=== PATIENT | male | born 1975 | race Caucasian/White ===

== ENCOUNTER 2024-10-23 18:02 | Emergency (ER) | payer BC, SELFPAY ==
[2024-10-23 18:04] VITALS: BP 154/122; PULSE 88; RESP 18; TEMP 37.1; O2SAT 100; BMI 25.0
[2024-10-23 18:08] VITALS: BMI 26.7
--- NOTE | 2024-10-23 18:10 | EKG12_ITS ---
Test Reason : O Blood Pressure : */* mmHG Vent. Rate : 86 BPM Atrial Rate : 86 BPM P-R Int : 168 ms QRS Dur : 98 ms QT Int : 404 ms P-R-T Axes : 53 44 61 degrees QTcB Int : 483 ms Normal sinus rhythm Otherwise normal ECG Confirmed by TEODORA DINH, AKI ([id number]), assistant production editor ANA REN ([id number]) on 10/25/2024 8:47:33 AM Referred By: Confirmed By: AKI ARAIZA MD
[2024-10-23] MEDS: Ketorolac 15 MG/ML Vial IV (18:13)
[2024-10-23] MEDS: Morphine 4 MG/ML Syringe IV ×2 (18:13→20:40)
[2024-10-23] MEDS: Ondansetron 4 MG/2 ML Vial IV (18:13)
[2024-10-23 18:14] VITALS: BP 129/94; PULSE 88; RESP 30; O2SAT 100
--- NOTE | 2024-10-23 18:20 | CT_ITS ---
INDICATION: L flank pain EXAMINATION: CT Abdomen And Pelvis W/O Contrast Injection TECHNIQUE: Helically acquired images were obtained of the abdomen and pelvis without the use of IV contrast. A radiation dose optimization technique was used for this scan. Oral contrast: None. COMPARISON: None FINDINGS: Evaluation of the solid organs and vascular structures is limited without intravenous contrast. Visualized lung bases: Unremarkable Liver: Unremarkable Gallbladder: Unremarkable Spleen: Unremarkable Pancreas: Unremarkable Adrenal Glands: Unremarkable Kidneys: Mild left hydroureteronephrosis with no obstructing stone visualized. Vasculature: Mild scattered aortoiliac atherosclerotic calcifications. GI Tract: Unremarkable Lymphadenopathy: None Peritoneum: No ascites. Bladder: Unremarkable Reproductive organs: Unremarkable Bones/Soft tissues: No suspicious osseous or soft tissue lesions CT/Abdomen/Pelvis without Cont IMPRESSION: Mild left hydroureteronephrosis with no obstructing stone visualized. This is most likely secondary to a recently passed stone. Electronically Signed: Ke Calhoun MD at 21:24 EST ,
--- NOTE | 2024-10-23 18:24 | EX.ED.DYSGE1 ---
HPI <JOCELIN Smith - Last Filed: 10/23/24 21:54> History of Present Illness Chief Complaint: Flank Pain Narrative Narrative: Patient presenting today with left-sided flank pain that started about 30 minutes prior to arrival. He denies any history of kidney stones or fevers, chills, abdominal pain, nausea, vomiting, hematuria, and previous abdominal surgery. He denies any chronic medical conditions. On the way here he reports he developed pain below his left breast/left upper quadrant of his abdomen. He denies any injury. No cardiac history or history of blood clots/recent surgery/travel/immobilization. PFSH <JOCELIN Smith - Last Filed: 10/23/24 21:54> PFSH Medical History Epilepsy Home Medications ?Medication ?Instructions ?Recorded ?Last Taken ?Type hydrocodone-acetaminophen 5-325mg 1 tab PO Q4H PRN PRN Pain 2 days 10/23/24 Unknown Rx 5mg-325mg #7 TABLETS Allergy/AdvReac Type Severity Reaction Status Date / Time sulfamethoxazole (From Allergy PT UNSURE Verified 10/23/24 18:04 Bactrim) OF REACTION trimethoprim (From Bactrim) Allergy PT UNSURE Verified 10/23/24 18:04 OF REACTION Social History Smoking Status: Former smoker ROS <JOCELIN Smith - Last Filed: 10/23/24 21:54> ROS ED Constitutional Constitutional ED: Denies chills or fever(s) Cardiovascular Cardiovascular: Denies chest pain Respiratory/Chest Respiratory/Chest: Denies cough or dyspnea Gastrointestinal Gastrointestinal: Denies abdominal pain, nausea or vomiting Genitourinary Genitourinary ED: Denies dysuria, hematuria or urinary urgency Musculoskeletal Musculoskeletal: Reports other Details: Left flank pain Integumentary Denies rash Neurologic Neurologic: Denies weakness EXAM <JOCELIN Smith - Last Filed: 10/23/24 21:54> Physical Exam Const Vital Signs: 10/23/24 18:04 10/23/24 18:14 10/23/24 19:00 Temperature 98.7 F Temperature Source Oral Pulse Rate 88 88 64 Respiratory Rate 18 30 H 18 Blood Pressure 154/122 H 129/94 H 138/71 H Blood Pressure Mean 132 105 92 Pulse Ox 100 100 99 Oxygen Delivery Method Room Air Room Air 10/23/24 20:00 10/23/24 20:49 10/23/24 21:55 Temperature 98.7 F 98.7 F 98.5 F Temperature Source Oral Oral Pulse Rate 88 85 81 Respiratory Rate 16 16 16 Blood Pressure 126/75 H 140/84 H 137/84 H Blood Pressure Mean 92 102 101 Pulse Ox 100 100 97 Oxygen Delivery Method Room Air Room Air Positive well nourished, well developed and no apparent distress General Appearance ED: well developed HEENT Reports normocephalic and head/scalp atraumatic Mouth ED: Yes moist mucous membranes normal Eyes PERRL and EOMs intact bilaterally Neck full ROM and supple Chest Wall inspection of chest normal Resp normal respiratory effort and clear to auscultation bilaterally Cardio regular rate and regular rhythm GI soft to palpation, non-tender, non-distended and no masses Back/Spine normal ROM and normal to inspection General Back: Negative for CVA tenderness Extremity normal to inspection and full ROM Neuro oriented x3, CN's II-XII intact bilaterally, moves all extremities, no focal motor deficits and no sensory deficits noted Sensorium / Orientation: awake and alert Psych mental status grossly normal and thought process normal Skin no rashes or lesions noted and no wounds <Dr. Jatin Jc DO - Last Filed: 10/24/24 02:23> Physical Exam Const Vital Signs: 10/23/24 18:04 10/23/24 18:14 10/23/24 19:00 Temperature 98.7 F Temperature Source Oral Pulse Rate 88 88 64 Respiratory Rate 18 30 H 18 Blood Pressure 154/122 H 129/94 H 138/71 H Blood Pressure Mean 132 105 92 Pulse Ox 100 100 99 Oxygen Delivery Method Room Air Room Air 10/23/24 20:00 10/23/24 20:49 10/23/24 21:55 Temperature 98.7 F 98.7 F 98.5 F Temperature Source Oral Oral Pulse Rate 88 85 81 Respiratory Rate 16 16 16 Blood Pressure 126/75 H 140/84 H 137/84 H Blood Pressure Mean 92 102 101 Pulse Ox 100 100 97 Oxygen Delivery Method Room Air Room Air MDM <JOCELIN Smith - Last Filed: 10/23/24 21:54> MDM MDM Narrative Medical decision making narrative: Patient presenting today with left-sided flank pain that started about 30 minutes prior to arrival. He is nontoxic-appearing. He does appear uncomfortable. Labs obtained, he has a WBC of 13.6, potassium of 2.8, creatinine 1.52. Platelet count of 479. CT scan of the abdomen pelvis obtained to assess for kidney stones, diverticulitis, bowel obstruction, appendicitis, mass, and other etiology. Patient given IV fluids, Zofran, morphine, and Toradol. He initially reported left upper quadrant/pain below the left breast that started on his way here and EKG was obtained via protocol orders, this is normal sinus rhythm. He did have reproducible tenderness to his left upper quadrant/left lower chest, low suspicion that his pain is cardiac in nature. He is not complaining of any chest pain currently and reports that that pain did resolve. CT scan of the abdomen pelvis shows mild left hydroureteronephrosis, no obstructing stone visualized, he most likely had a recently passed stone. UA is negative for UTI. He does have significant improvement of his symptoms on reexamination. Will give him a short course of [place] for home for pain. Recommended he follow-up with his PCP and he will be discharged home in stable condition. Lab Data Attestation: I reviewed the patient's lab results. Labs: Laboratory Results - last 24 hr 10/23/24 10/23/24 18:09 20:47 WBC 13.6 H RBC 4.98 Hgb 15.4 Hct 43.3 MCV 86.9 MCH 30.9 MCHC 35.6 RDW Std Deviation 39.2 RDW Coeff of Kate 12.4 Plt Count 479 H MPV 9.6 Immature Gran % (Auto) 0.500 Neut % (Auto) 57.1 Lymph % (Auto) 31.6 [place] % (Auto) 7.9 Eos % (Auto) 2.1 Baso % (Auto) 0.8 Absolute Neuts (auto) 7.8 H Absolute Lymphs (auto) 4.30 Nucleated RBC % 0 Sodium 139 Potassium 2.8 L Chloride 106 Carbon Dioxide 21.0 Anion Gap 12 BUN 14 Creatinine 1.52 H Estim Creat Clear Calc 63.30 Est GFR (MDRD) Af Amer 63 Est GFR (MDRD) Non-Af 52 L BUN/Creatinine Ratio 9.2 L Glucose 174 H Calcium 9.1 Urine Color Yellow Urine Clarity Sl. Cloudy Urine pH 7.0 Ur Specific [place] 1.015 Urine Protein 15 H Urine Glucose (UA) Normal Urine Ketones Negative Urine Occult Blood Negative Urine Nitrite Negative Urine Bilirubin Negative Urine Urobilinogen Normal Ur Leukocyte Esterase Negative Urine RBC 0-5 SEEN Urine WBC 5-10 SEEN Ur Squamous Epith Cells 0 SEEN Urine Bacteria RARE Urine Mucus 1+ Radiography Diagnostic Testing: Clinical Impression(s) from Imaging Studies Abdomen/Pelvis CT 10/23/24 18:20 IMPRESSION: Mild left hydroureteronephrosis with no obstructing stone visualized. This is most likely secondary to a recently passed stone. Electronically Signed: Ke Calhoun MD at 21:24 EST , EKG Initial EKG: Comments: 86 bpm, normal sinus rhythm, no ST elevation, interpreted by attending ED physician <Dr. Jatin Jc, DO - Last Filed: 10/24/24 02:23> [facility] Lab Data Labs: Laboratory Results - last 24 hr 10/23/24 10/23/24 18:09 20:47 WBC 13.6 H RBC 4.98 Hgb 15.4 Hct 43.3 MCV 86.9 MCH 30.9 MCHC 35.6 RDW Std Deviation 39.2 RDW Coeff of Kate 12.4 Plt Count 479 H MPV 9.6 Immature Gran % (Auto) 0.500 Neut % (Auto) 57.1 Lymph % (Auto) 31.6 [place] % (Auto) 7.9 Eos % (Auto) 2.1 Baso % (Auto) 0.8 Absolute Neuts (auto) 7.8 H Absolute Lymphs (auto) 4.30 Nucleated RBC % 0 Sodium 139 Potassium 2.8 L Chloride 106 Carbon Dioxide 21.0 Anion Gap 12 BUN 14 Creatinine 1.52 H Estim Creat Clear Calc 63.30 Est GFR (MDRD) Af Amer 63 Est GFR (MDRD) Non-Af 52 L BUN/Creatinine Ratio 9.2 L Glucose 174 H Calcium 9.1 Urine Color Yellow Urine Clarity Sl. Cloudy Urine pH 7.0 Ur Specific [place] 1.015 Urine Protein 15 H Urine Glucose (UA) Normal Urine Ketones Negative Urine Occult Blood Negative Urine Nitrite Negative Urine Bilirubin Negative Urine Urobilinogen Normal Ur Leukocyte Esterase Negative Urine RBC 0-5 SEEN Urine WBC 5-10 SEEN Ur Squamous Epith Cells 0 SEEN Urine Bacteria RARE Urine Mucus 1+ Radiography Diagnostic Testing: Clinical Impression(s) from Imaging Studies Abdomen/Pelvis CT 10/23/24 18:20 IMPRESSION: Mild left hydroureteronephrosis with no obstructing stone visualized. This is most likely secondary to a recently passed stone. Electronically Signed: Ke Calhoun MD at 21:24 EST , Treatment and Re-Evaluation :: I have personally performed a face to face assessment of the patient and have reviewed the PHIL Note. I performed a substantive portion of the visit including all aspects of the following. My vincent findings include: History: Patient presents with left flank pain that began today just prior to arrival. Patient states the pain is sharp and stabbing. Patient states it is over his left flank. Patient states nothing makes it worse and nothing makes it better. Patient denies any fevers but admits to subjective chills. Patient denies any nausea or vomiting. Patient denies any dysuria or hematuria. Exam: Vital signs are stable except for an elevated blood pressure 154/122. Patient is afebrile. Patient is in no acute distress. Oral mucosa is pink and moist. Neck is supple. Trachea is midline. There is no JVD. Heart was regular rate and rhythm. Lungs are clear and equal bilaterally. Abdomen is soft. Bowel sounds are normal. There is no tenderness. There is no rebound or guarding noted. There is some mild left CVA tenderness. Cranial nerves II through XII are intact. There are no focal motor or sensory deficits noted. Medical Decision Making: Differential diagnosis includes ureteral calculus, diverticulitis, bowel obstruction, perforation, urinary tract infection, pyelonephritis, and anxiety. CBC will be obtained to assess for leukocytosis and anemia. Basic metabolic profile will be obtained to assess for electrolyte abnormality and renal function. Urinalysis will be obtained to assess for urinary tract infection and hematuria. CT scan of the abdomen and pelvis will be obtained to assess for ureteral calculus, bowel obstruction, and perforation. Patient was given IV fluids, Toradol, morphine, and Zofran. CBC was reviewed. There is a mild leukocytosis of 13.6. Platelets were slightly elevated at 479. Basic metabolic profile was reviewed. Potassium is low at 2.8. Creatinine was slightly elevated at 1.52. There are no prior lab values for comparison. Urinalysis was reviewed. There is no evidence of urinary tract infection or hematuria. CT scan of the abdomen and pelvis was obtained. There is some residual left hydronephrosis. This could be from a recently passed stone. Patient was advised of his findings. Patient was given a prescription for a short course of [place]. Patient was instructed to follow-up with his primary care physician in 5 to 7 days. Patient was instructed return if worse in any way. Patient understood and was agreeable with the plan. All questions were answered. Discharge Plan Triage Chief Complaint: Flank Pain ED Midlevel Provider: Roselyn Braden ED Provider: Jatin Jc Dx/Rx/DC Orders Clinical Impression: Acute left flank pain Instructions: ED Kidney Stone, Passed Prescriptions: New hydrocodone-acetaminophen 5-325 mg tablet 1 tab PO Q4H PRN PRN (Reason: Pain) 2 Days Qty: 7 0RF Primary Care Provider: Sreekanth Sotomayor Referrals: Sreekanth Sotomayor MD [Primary Care Provider] - 5-7 Days Activity Restrictions/Additional Instructions: Follow-up with your PCP and return for any other concerns. Print Language: Swedish Disposition Disposition: Home, Self Care Discharge Date/Time: 10/23/24 21:57
[2024-10-23 18:28] LABS: Absolute Neutrophil Count 7.8 X10^3/uL (2.0-7.7); Basophil# 0.11 X10^3/uL; Basophil% 0.8 % (0-1); Eosinophil# 0.29 X10^3/uL; Eosinophils% 2.1 % (0-5); Hematocrit 43.3 % (40-54); Hemoglobin 15.4 g/dL (13.0-16.5); Lymphocyte % 31.6 % (19-41); Mean Corp Hgb Conc 35.6 g/dL (32-36); Mean Corpuscular Hgb 30.9 pg (27.0-32.0); Mean Corpuscular Volume 86.9 fL (80-94); Mean Platelet Vol. 9.6 fl (6.2-12.0); Monocyte# 1.07 X10^3/uL; Monocyte% 7.9 % (0-10); NRBC Flagged by Analyzer 0 % (0-5); Neutrophil # 7.76 X10^3/uL (2.7-7.7); Neutrophil % 57.1 % (47-70); Platelet Count 479 K/mm3 (150-450); RBC Distribution Width CV 12.4 % (11.6-14.6); RBC Distribution Width SD 39.2 fl (35.1-43.9); Red Blood Count 4.98 M/mm3 (4.6-6.2); White Blood Count 13.6 K/mm3 (4.4-11.0)
[2024-10-23] MEDS: 0.9% Normal Saline (1000mL) 1,000 ML 999 ML IV (18:28)
[2024-10-23 18:46] LABS: Anion Gap 12 (5-15); BUN 14 mg/dL (7-18); BUN/Creat Ratio 9.2 RATIO (10-20); Calcium,Total 9.1 mg/dL (8.5-10.1); Chloride 106 mmol/L (98-107); Creatinine, Serum 1.52 mg/dL (0.70-1.30); EST Glomerular Filtration Rate 52 mL/min (>60); Est Glom Filt Rate - Afr Amer 63 mL/min (>60); Glucose 174 mg/dL (74-106); Potassium 2.8 mmol/L (3.5-5.1); Sodium Level 139 mmol/L (136-145)
[2024-10-23 19:00] VITALS: BP 138/71; PULSE 64; RESP 18; O2SAT 99
[2024-10-23 20:00] VITALS: BP 126/75; PULSE 88; RESP 16; TEMP 37.1; O2SAT 100
[2024-10-23 20:49] VITALS: BP 140/84; PULSE 85; RESP 16; TEMP 37.1; O2SAT 100
[2024-10-23 20:54] LABS: Squamous Epithelial Cells - UA 0 SEEN /hpf (0-5)
[2024-10-23 20:57] LABS: Color, Urine Yellow (Yellow); Glucose, Dipstick Normal (Normal); Ketone-Dipstick Negative (Negative); Leukocyte Esterase-Dipstick Negative /ul (Negative); Nitrite-Dipstick Negative (Negative); Occult Blood-Urine Negative /ul (Negative); Protein-Dipstick 15 mg/dl (Negative); Specific Gravity, Urine 1.015 (1.002-1.030); Urine Bilirubin Dipstick Negative (Negative); Urine Clarity Sl. Cloudy (Clear); Urine Urobilinogen Normal (Normal)
[2024-10-23 21:40] LABS: Mucous, Urine 1+ /hpf (<or=2+)
[2024-10-23 21:41] LABS: Bacteria RARE /hpf (None Seen); Red Blood Cells-Urine 0-5 SEEN /hpf (0-5); White Blood Cells 5-10 SEEN /hpf (0-5)
[2024-10-23] MEDS: HYDROcodone Bitartrate/Apap 5/325 Tablet PO (21:53)
[2024-10-23 21:55] VITALS: BP 137/84; PULSE 81; RESP 16; TEMP 36.9; O2SAT 97
== END 2024-10-23 21:57 | disposition home or self-care (01) ==
PROVIDERS: Physician Assistant; Emergency Provider Emergency Medicine; PCP Family Medicine; Visit Provider Emergency Medicine
DX: N13.30 Unspecified hydronephrosis (principal); Z88.2 Allergy status to sulfonamides; Z88.1 Allergy status to other antibiotic agents; Z87.891 Personal history of nicotine dependence
CPT/HCPCS: 74176; 80048; 81001; 85025; 93005; 96361; 96374; 96375; 96376; 99284; A4216; J2405

== ENCOUNTER 2025-05-09 18:02 | Emergency (ER) | payer BC, SELFPAY ==
[2025-05-09 18:02] VITALS: BP 153/107; PULSE 87; RESP 16; TEMP 36.8; O2SAT 99; BMI 26.3
--- NOTE | 2025-05-09 18:35 | ED.RN ---
PT STATES HE HAS NO HX OF SEIZURES, YESTERDAY S/O WITNESSED HIM HAVE A 5 MINUTE EPISODE WHERE HIS EYES ROLLED BACK AND HE WOULD NOT RESPOND TO HIM. HE RECALLS WAKING UP AND FEELING VERY HOT AND TINGLY PT SMILING AND LAUGHING WITH S/O ABOUT EVENT WHILE THIS NNURSE IS DOING ASSESSMENT. PT STATES HIS DR ACTED LIKE HE WAS AN IDIOT FOR NOT GOING TO THE ER AFTER HE MESSAGED HIM ON CC
--- NOTE | 2025-05-09 18:40 | EKG12_ITS ---
Test Reason : SEIZURE Blood Pressure : */* mmHG Vent. Rate : 78 BPM Atrial Rate : 78 BPM P-R Int : 186 ms QRS Dur : 90 ms QT Int : 352 ms P-R-T Axes : 24 -6 12 degrees QTcB Int : 401 ms Normal sinus rhythm Normal ECG Confirmed by Naseem Baer ([id number]), assistant film editor ANA REN ([id number]) on 05/11/2025 11:20:14 AM Referred By: Shin Coronado Confirmed By: Naseem Baer
--- NOTE | 2025-05-09 18:41 | EX.ED.DYSGE1 ---
HPI History of Present Illness Chief Complaint: Seizure Narrative Narrative: 50-year-old male presents with his at the direction of his primary care provider for seizure versus syncopal episode yesterday morning. This was over 24 hours ago. He relates history that they were sitting in a chair talking in the garage before he he started working, and his states that his eyes rolled in the back of his head, and his left arm started to raise up. This lasted about 5 minutes. When he came to, he asked what happened. He has no recollection of the event. There was no postictal state. He denies any significant past medical history. No prodromal symptoms, no chest pain, no shortness of breath, no headache, no fever or chills. He states he feels well and is currently in his usual state of health. No recent drug or alcohol use. They state that they called his primary care provider. He called him back today, this morning and told him to come to the emergency department, but the patient was at work, and presents now for evaluation. [facility] Medical History Epilepsy Home Medications ?Medication ?Instructions ?Recorded ?Last Taken ?Type NK 05/09/25 Unknown History Allergy/AdvReac Type Severity Reaction Status Date / Time sulfamethoxazole (From Allergy PT UNSURE Verified 05/09/25 18:40 Bactrim) OF REACTION trimethoprim (From Bactrim) Allergy PT UNSURE Verified 05/09/25 18:40 OF REACTION Social History Smoking Status: Former smoker ROS ROS ED ROS Narrative Review of systems positive for syncope versus seizure activity yesterday. Currently denies any fevers or chills, no cough, no dysuria or hematuria, no chest pain or shortness of breath. No headache. No paresthesias. EXAM Physical Exam Narrative Exam Narrative: Afebrile. Vital signs noted. Nontoxic-appearing. Cardiovascular examination reveals a regular rate and rhythm. Lungs are clear to auscultation bilaterally. Abdomen is soft, nontender, without guarding or rebound. Positive bowel sounds. Neurological examination is nonfocal, nonlateralizing. He is awake, alert, oriented, follows commands. Normal cerebellar functioning. Const Vital Signs: 05/09/25 18:02 05/09/25 19:02 05/09/25 20:35 Temperature 98.2 F Temperature Source Oral Pulse Rate 87 74 82 Respiratory Rate 16 18 16 Blood Pressure 153/107 H 118/94 H 123/93 H Blood Pressure Mean 122 102 103 Pulse Ox 99 98 98 Oxygen Delivery Method Room Air Room Air Room Air 05/09/25 20:36 Temperature 97.7 F L Temperature Source Pulse Rate 82 Respiratory Rate 16 Blood Pressure 123/93 H Blood Pressure Mean 103 Pulse Ox 98 Oxygen Delivery Method MDM MDM MDM Narrative Medical decision making narrative: Differential diagnosis includes but not limited to syncope versus seizure. It does not sound like patient had a grand mal seizure. I had a discussion with the patient and his regarding workup here in the emergency department today. I will obtain a CT of the brain to look for mass or hemorrhage, but he does not have a headache, and denies any recent trauma. EKG will be obtained to look for dysrhythmia. I do not feel he needs a chest x-ray. I will obtain basic laboratory work to look for dehydration or electrolyte imbalance with CBC and CMP. As long as his screening labs are normal as well as his imaging, I do feel that he would be safe to follow-up with his primary care provider for possible referral to neurology. I do not feel that he would require observation or transfer emergently. EKG was obtained and interpreted by myself independently as normal sinus rhythm at 78 bpm without ectopy or acute ST changes. No STEMI. I reviewed his laboratory work and he has a normal white count of 8.1 with hemoglobin 14.7, hematocrit 41.4, platelet count 335. Electrolyte panel shows carbon dioxide low at 19.7 which I think is nonspecific, glucose 111 with normal anion gap of 13. LFTs grossly unremarkable. Normal sodium, potassium, and chloride. I reviewed the radiology report of the CT of the brain and there is no acute process, no hemorrhage or mass. At this point in time, I feel he can be discharged to follow-up with his primary care provider. Sounds like he had more of a syncopal episode. I feel he can be discharged safely home with follow-up. Return instructions to the emergency department were reviewed. Disposition is discharged home in stable condition. History & Record Review Discussion w/independent historian: Patient and Family () Lab Data Attestation: I reviewed the patient's lab results. Labs: Laboratory Results - last 24 hr 05/09/25 18:50 WBC 8.1 RBC 4.67 Hgb 14.7 Hct 41.4 MCV 88.7 MCH 31.5 MCHC 35.5 RDW Std Deviation 42.2 RDW Coeff of Kate 13.0 Plt Count 335 MPV 10.2 Immature Gran % (Auto) 0.200 Neut % (Auto) 64.3 Lymph % (Auto) 24.6 [place] % (Auto) 7.4 Eos % (Auto) 3.0 Baso % (Auto) 0.5 Absolute Neuts (auto) 5.2 Absolute Lymphs (auto) 2.00 Nucleated RBC % 0 Sodium 140 Potassium 3.7 Chloride 107 Carbon Dioxide 19.7 L Anion Gap 13 BUN 13 Creatinine 0.96 Estim Creat Clear Calc 99.14 Est GFR (MDRD) Non-Af 96 BUN/Creatinine Ratio 13.2 Glucose 111 H Calcium 9.4 Total Bilirubin 0.30 AST 22 ALT 28 Alkaline Phosphatase 82 Total Protein 7.0 Albumin 4.5 Globulin 2.6 Albumin/Globulin Ratio 1.7 Radiography Diagnostic Testing: Clinical Impression(s) from Imaging Studies Brain CT 05/09/25 18:55 IMPRESSION: Unremarkable head CT. Reading Location: [facility] Discharge Plan Triage Chief Complaint: Seizure ED Provider: Shin Coronado Dx/Rx/DC Orders Clinical Impression: Syncope, convulsive, Encounter for medical screening examination Instructions: ED ALOC, ED Fainting, Uncertain Cause Prescriptions: No Action NK Primary Care Provider: Sreekanth Sotomayor Referrals: Sreekanth Sotomayor MD [Primary Care Provider] - As soon as possible Activity Restrictions/Additional Instructions: Return with a repeat episode of change in level of consciousness, convulsions, new or worsening symptoms. Follow-up with your primary care provider. Print Language: South African Disposition Disposition: Home, Self Care Discharge Date/Time: 05/09/25 20:37
--- NOTE | 2025-05-09 18:55 | CT_ITS ---
PROCEDURE: BRAIN/HEAD WITHOUT CONTRAST 05/09/2025 REASON FOR EXAM: SEIZURE TECHNIQUE: BRAIN/HEAD WITHOUT CONTRAST Coronal and Sagittal reconstruction series were provided. One or more dose reduction techniques were used (e.g., Automated exposure control, adjustment of the mA and/or kV according to patient size, use of iterative reconstruction technique. RADIATION DOSE SUMMARY: CTDlvol: 44.99 mGy DLP: 796.11 mGycm COMPARISON: None. FINDINGS: No acute intracranial hemorrhage, extra-axial collection, mass effect or evidence of acute infarct. Ventricles and subarachnoid spaces are normal in size. Orbital contents are unremarkable. Intact skull base and calvarium. Clear paranasal sinuses and mastoid air cells. CT/Brain/Head without Contrast IMPRESSION: Unremarkable head CT. Reading Location: [id number]
[2025-05-09 19:02] VITALS: BP 118/94; PULSE 74; RESP 18; O2SAT 98
[2025-05-09 19:33] LABS: Hematocrit 41.4 % (40-54); Hemoglobin 14.7 g/dL (13.0-16.5); Immature Granulocytes Count 0.020 X10^3/uL (0.0-0.0); Mean Corp Hgb Conc 35.5 g/dL (32-36); Mean Corpuscular Volume 88.7 fL (80-94); Mean Platelet Vol. 10.2 fl (6.2-12.0); NRBC Flagged by Analyzer 0 % (0-5); Platelet Count 335 K/mm3 (150-450); RBC Distribution Width CV 13.0 % (11.6-14.6); RBC Distribution Width SD 42.2 fl (35.1-43.9); Red Blood Count 4.67 M/mm3 (4.6-6.2); White Blood Count 8.1 K/mm3 (4.4-11.0)
[2025-05-09 19:34] LABS: AST(SGOT) 22 U/L (<=37); Alanine Aminotransfer ALT/SGPT 28 U/L (<=46); Albumin, Serum 4.5 g/dL (3.5-5.0); Alkaline Phosphatase 82 U/L (40-129); Anion Gap 13 (5-15); BUN 13 mg/dL (4-19); BUN/Creat Ratio 13.2 RATIO (10-20); Calcium,Total 9.4 mg/dL (7.6-11.0); Carbon Dioxide 19.7 mmol/L (21.0-32.0); Chloride 107 mmol/L (98-108); Estimated Creatinine Clearance 99.14 ml/min (50-250); Globulin 2.6 g/dL (2.2-4.2); Glucose 111 mg/dL (70-99); Potassium 3.7 mmol/L (3.3-5.1)
[2025-05-09 20:35] VITALS: BP 123/93; PULSE 82; RESP 16; O2SAT 98
[2025-05-09 20:36] VITALS: BP 123/93; PULSE 82; RESP 16; TEMP 36.5; O2SAT 98
== END 2025-05-09 20:37 | disposition home or self-care (01) ==
PROVIDERS: Emergency Provider Emergency Medicine; PCP Family Medicine; Referring Provider Emergency Medicine; Visit Provider Emergency Medicine
DX: R55 Syncope and collapse (principal); R56.9 Unspecified convulsions; Z87.891 Personal history of nicotine dependence
CPT/HCPCS: 70450; 80053; 85025; 93005; 99284; A4216